=== PATIENT | female | born 1940 | race Caucasian/White ===

== ENCOUNTER 2017-01-10 16:11 | Inpatient (IN) | payer MEDICARE ==
[~2017-01-10] VITALS: Ht 172.7 cm; Wt 77.8 kg
--- NOTE | 2017-01-10 16:25 | NUR ---
PT BIB AMBULANCE DUE TO BRADYCARDIA. EPI 0.5 GIVEN IN FIELD MODERN GREEK STUDIES PROFESSOR. DENIES ANY PAIN. PT ALREADY ON IV ACCESS LHAND #18 NOT PATENT . STARTED NEW IV ACCESS LAC #18 . PT CONTINUES TO HAVE BRADYCARDIA. UPDATED MD AWAITING MD. PLACED PT ON EDUCATIONAL AID.
[2017-01-10] MEDS ORDERED: IV NS 0.9% 500 ML BAG IV ONE (16:30)
[2017-01-10] MEDS ORDERED: IV NS 0.9% 500 ML IV ONE (16:35)
[2017-01-10] MEDS ORDERED: IV SET PRIMARY PUMP SET 1 EA INFUS.SET MC ONE ×3 (16:35→17:20)
[2017-01-10 16:41] LABS: BASOPHILS % (AUTO) 0.5 % (0.0-2.0); EOSINOPHILS # (AUTO) 0.1 /CMM (0.0-0.7); EOSINOPHILS % (AUTO) 1.5 % (0.0-6.0); HEMATOCRIT 31 % (33-45); HEMOGLOBIN 10.8 g/dL (11.5-14.8); LYMPHOCYTES # (AUTO) 1.6 /CMM (0.8-4.8); LYMPHOCYTES % (AUTO) 15.9 % (20.0-44.0); MEAN CORPUSCULAR HEMOGLOBIN 34 PG (26.0-33.0); MEAN CORPUSCULAR HGB CONC 35 g/dl (31.0-36.0); MEAN CORPUSCULAR VOLUME 99 fL (82-100); MONOCYTES # (AUTO) 0.6 /CMM (0.1-1.30); MONOCYTES % (AUTO) 6.5 % (2.0-12.0); NEUTROPHILS # (AUTO) 7.5 /CMM (1.8-8.9); NEUTROPHILS % (AUTO) 75.6 % (43.0-81.0); PLATELET COUNT (AUTO) 161 /CMM (150-450); RDW COEFFICIENT OF VARIATION 13.9 (11.5-15.0); RED BLOOD CELL COUNT(AUTO) 3.15 MIL/uL (4.0-5.2); WHITE BLOOD COUNT (AUTO) 9.8 K/uL (4.3-11.0)
[2017-01-10 17:00] LABS: ALANINE AMINOTRANSFERASE 59 U/L (12-78); ALBUMIN 3.2 g/dL (3.4-5.0); ALKALINE PHOSPHATASE 135 U/L (46-116); ASPARTATE AMINOTRANSFERASE 62 U/L (15-37); BILIRUBIN,DIRECT 0.1 mg/dL (0.0-0.2); BILIRUBIN,TOTAL 0.3 mg/dL (0.2-1.0); CALCIUM, SERUM 8.1 mg/dL (8.5-10.1); CARBON DIOXIDE 29 mmol/L (21-32); CHLORIDE 97 mmol/L (98-107); CREATININE 2.2 mg/dL (0.6-1.3); POTASSIUM 5.8 mmol/L (3.5-5.1); SODIUM SERUM 131 mmol/L (136-145); TOTAL PROTEIN, SERUM 6.4 g/dL (6.4-8.2); TROPONIN I < 0.017 ng/mL (0.00-0.056); UREA NITROGEN, BLOOD 70 mg/dL (7-18)
--- NOTE | 2017-01-10 17:06 | NUR ---
CALLED DR.MICHELLE TRISTAN AT [phone], PLUSH FINISHER, TRANSFERRED CALL TO
[2017-01-10 17:10] LABS: GLUCOSE 509 mg/dL (74-106)
[2017-01-10] MEDS ORDERED: CALCIUM CHLORIDE 1,000 MG/10 ML DISP.SYRIN ONE (17:19)
--- NOTE | 2017-01-10 17:19 | NUR ---
UP=411 RECHECK AFTER 15 MINS LV=231 THEN AFTER 15 MINS =386 . AWARE.
[2017-01-10] MEDS ORDERED: INSULIN REGULAR, HUMAN 100 UNIT/ML 10 ML VIAL ONE (17:20)
[2017-01-10] MEDS ORDERED: SODIUM BICARBONATE SYR 50 MEQ/50 ML DISP.SYRIN ONE (17:20)
[2017-01-10] MEDS ORDERED: IV NS 0.9% 1,000 ML ONE (17:20)
[2017-01-10] MEDS ORDERED: ONDANSETRON 4 MG TAB.RAPDIS ONE (17:24)
[2017-01-10] MEDS ORDERED: ONDANSETRON 4 MG TAB.RAPDIS SL ONE (17:30)
[2017-01-10] MEDS ORDERED: SODIUM BICARBONATE SYR 50 MEQ/50 ML DISP.SYRIN IV ONE (17:30)
[2017-01-10] MEDS ORDERED: CALCIUM CHLORIDE 1,000 MG/10 ML DISP.SYRIN IV ONE (17:30)
[2017-01-10] MEDS ORDERED: INSULIN REGULAR, HUMAN 100 UNIT/ML 10 ML VIAL IV ONE (17:30)
[2017-01-10] MEDS ORDERED: IV NS 0.9% 1,000 ML BAG IV ONE (17:30)
--- NOTE | 2017-01-10 18:45 | NUR ---
PT TRANSFERRED TO ICU VIA [facility] PROTOCOL. HEART RATE 62 .
[2017-01-10] MEDS ORDERED: BUME2TAB3 PO (18:56)
[2017-01-10] MEDS ORDERED: INSU100V7 SQ (18:56)
[2017-01-10] MEDS ORDERED: APIX2.5T PO (18:56)
[2017-01-10] MEDS ORDERED: INSU100V27 SQ (18:56)
[2017-01-10] MEDS ORDERED: DILT120T2 PO (18:56)
[2017-01-10] MEDS ORDERED: ALLO100T PO (18:56)
[2017-01-10] MEDS ORDERED: ACYC800T PO (18:56)
[2017-01-10] MEDS ORDERED: LOTE5DRO3 LEFTEYE (18:56)
[2017-01-10] MEDS ORDERED: CLOP75TA2 PO (18:56)
[2017-01-10] MEDS ORDERED: METH1TAB30 PO (18:56)
--- NOTE | 2017-01-10 19:00 | NUR ---
DIE STAMPING PRESS OPERATOR: PT ADMITTED TO ICU ROOM 261 FOR DX OF BRADYCARDIA. RECEIVED A/O X 3. ON R/A WT NO ACUTE DISTRESS. NO C/O PAIN. SR ON VARNISH DIPPER. AFEBRILE. AWAITING FOR ORDERS. PER PATIENT, SHE WANTED TO BE DNR/DNI. VIC CHARGE NURSE CONFIRMED AT BEDSIDE. SAFETY PRECAUTION NOTED. WILL CONTINUE TO MONITOR.
[2017-01-10] MEDS ORDERED: [UNRECOGNIZED DRUG - CODE] PO (19:02)
[2017-01-10] MEDS ORDERED: MIRT15TA3 PO (19:02)
[2017-01-10] MEDS ORDERED: CARB30DR4 EACHEYE (19:02)
[2017-01-10] MEDS ORDERED: DOCU-25 PO (19:02)
[2017-01-10] MEDS ORDERED: TRAM50TA2 PO (19:02)
[2017-01-10] MEDS ORDERED: LACT1CAP71 PO (19:02)
[2017-01-10] MEDS ORDERED: METO200T35 PO (19:02)
[2017-01-10 19:10] VITALS: BP 159/60
[2017-01-10 19:16] VITALS: BP 161/57
[2017-01-10 19:50] LABS: PROTHROMBIN TIME 10.7 SECS (9.5-12.7)
[2017-01-10 20:00] VITALS: BP 177/64
[2017-01-10] MEDS ORDERED: CARBOXYMETHYLCELLULOSE SODIUM 0.4 ML DROPERETTE EACHEYE PRN (20:00)
[2017-01-10] MEDS ORDERED: ACETAMINOPHEN 325 MG TABLET PO PRN (20:00)
[2017-01-10] MEDS ORDERED: Z GUARD REMEDY 2 OZ OINT TP PRN (20:00)
[2017-01-10 21:00] VITALS: BP 195/72
[2017-01-10 21:18] LABS: CALCIUM, SERUM 9.3 mg/dL (8.5-10.1); CARBON DIOXIDE 29 mmol/L (21-32); CHLORIDE 100 mmol/L (98-107); CREATININE 1.8 mg/dL (0.6-1.3); MAGNESIUM 2.3 mg/dL (1.8-2.4); POTASSIUM 5.6 mmol/L (3.5-5.1); SODIUM SERUM 135 mmol/L (136-145); UREA NITROGEN, BLOOD 69 mg/dL (7-18)
[2017-01-10 21:22] LABS: TROPONIN I < 0.017 ng/mL (0.00-0.056)
[2017-01-10 21:27] LABS: GLUCOSE 361 mg/dL (74-106)
--- NOTE | 2017-01-10 21:40 | NUR ---
CODE ENFORCEMENT OFFICER: RECEIVED GLUCOSE RESULT FROM LAB DRAW= 361. ACCUCHEK DONE WT RESULT OF 348. WILL ADMINISTER LEVEMIR ORDERED WILL NOTIFY MD IF WANT TO ORDER INSULIN PER SS. NO KENNY AT THIS TIME. REMAINED ALERT AND AWAKE. NO S/S OF HYPERGLYCEMIA AT THIS TIME. WILL CONTINUE TO MONITOR.
--- NOTE | 2017-01-10 21:50 | NUR ---
INDUSTRIAL RELATIONS ANALYST: NOTIFIED DR. GALAN OF LAB RESULTS FOR K=5.6, WFNAFHO=783 AND ELEVATED BP. HE SAID HE WILL REFER TO BRIE TALLEY. DNP MADE AWARE AND SAID HE WILL PLACE ORDERS.
[2017-01-10] MEDS: INSULIN DETEMIR 100 UNIT/ML CARTRIDGE SQ SCH (21:56)
[2017-01-10 22:00] VITALS: BP 182/66
[2017-01-10] MEDS ORDERED: MIRTAZAPINE SOLUTAB 15 MG/UDTABLET TAB.RAPDIS PO SCH (22:00)
[2017-01-10] MEDS ORDERED: NIFEdipine (10MG) 10 MG CAPSULE ONE (22:21)
[2017-01-10] MEDS ORDERED: SODIUM POLYSTYRENE SULFONATE 15 G/60 ML BOTTLE ONE (22:21)
[2017-01-10] MEDS: BLOOD SUGAR DIAGNOSTIC 1 EACH STRIP IN SCH (22:26)
[2017-01-10] MEDS ORDERED: DEXTROSE 50%-WATER 50 ML DISP.SYRIN IV PRN (22:30)
[2017-01-10] MEDS ORDERED: SODIUM POLYSTYRENE SULFONATE 15 G/60 ML BOTTLE PO ONE (22:30)
[2017-01-10] MEDS: *INSULIN REGULAR(HUMULIN R)HUM 100 UNIT/ML VIAL SQ PRN (22:35)
[2017-01-10] MEDS: TRAMADOL HCL 50 MG TABLET PO PRN (22:40)
[2017-01-10] MEDS: NIFEdipine (10MG) 10 MG CAPSULE PO SCH (22:41)
[2017-01-10 23:00] VITALS: BP 183/64
[2017-01-11] VITALS (14 sets, daily range): BP systolic 68–181; BP diastolic 40–99
--- NOTE | 2017-01-11 00:15 | NUR ---
FARMER CASH GRAIN: NOTIFIED DR. GALAN OF STILL ELEVATED BP EVEN AN HOUR AFTER PROCARDIA. SAID TO JUST MONITOR BECAUSE HE STATED, "THERE'S NOT MUCH WE CAN GIVE. WE CAN TRY HYDRALAZINE BUT THAT MAY CAUSE BRADYCARDIA TOO OR IT MAY CAUSE TACHYCARDIA". WILL CONTINUE TO MONITOR.
--- NOTE | 2017-01-11 01:00 | NUR ---
BAKERY TECHNICIAN: BP NO IMPROVED AT 153/74. REMAINED SR WT HR IN THE 60s-70s. WILL CONTINUE TO MONITOR.
[2017-01-11 04:47] LABS: BASOPHILS % (AUTO) 0.2 % (0.0-2.0); EOSINOPHILS # (AUTO) 0.1 /CMM (0.0-0.7); EOSINOPHILS % (AUTO) 1.2 % (0.0-6.0); HEMATOCRIT 31 % (33-45); HEMOGLOBIN 10.4 g/dL (11.5-14.8); LYMPHOCYTES # (AUTO) 1.4 /CMM (0.8-4.8); LYMPHOCYTES % (AUTO) 14.7 % (20.0-44.0); MEAN CORPUSCULAR HEMOGLOBIN 33 PG (26.0-33.0); MEAN CORPUSCULAR HGB CONC 34 g/dl (31.0-36.0); MEAN CORPUSCULAR VOLUME 98 fL (82-100); MONOCYTES # (AUTO) 0.6 /CMM (0.1-1.30); MONOCYTES % (AUTO) 6.4 % (2.0-12.0); NEUTROPHILS # (AUTO) 7.4 /CMM (1.8-8.9); NEUTROPHILS % (AUTO) 77.5 % (43.0-81.0); PLATELET COUNT (AUTO) 177 /CMM (150-450); RED BLOOD CELL COUNT(AUTO) 3.12 MIL/uL (4.0-5.2); WHITE BLOOD COUNT (AUTO) 9.6 K/uL (4.3-11.0)
[2017-01-11 05:00] LABS: CALCIUM, SERUM 8.8 mg/dL (8.5-10.1); CREATININE 1.6 mg/dL (0.6-1.3); PHOSPHORUS 4.8 mg/dL (2.5-4.9)
[2017-01-11 05:05] LABS: THYROID STIMULATING HORMONE 2.667 uIU/mL (0.358-3.74)
--- NOTE | 2017-01-11 05:20 | NUR ---
WAX BLENDER: NOTIFIED DR. GALAN OF GLUCOSE LAB. LUBIAPM=943. ACCUCHEK JLOM=315. INFORMED MD THAT PT HAD 1 CAN OF DIET COKE 2 HRS AGO. ATE TUNA SANDWICH AND DRANK 2% REDUCED FAT MILK LAST NIGHT BUT GOT COVERED WT 8 UNITS OF REGULAR INSULIN AND 13 UNITS LEVEMIR. WT ORDER TO GIVE 10 UNITS OF REGULAR INSULIN X 1. NOTED AND CARRIED OUT. PT AND MARITESS CHARGE NURSE MADE AWARE. PT. REMAINED A/O X 3. PLACED ON 2L 02 VIA NC SHE DESAT. IN THE LOW 90s WHEN ASLEEP. NO ACUTE DISTRESS, NO C/O PAIN. SR ON MONITOR WT OCCASIONAL PACs, HR IN THE 60s TO 70s. WILL ADMINISTER PROCARDIA ORDERED FOR ELEVATED BP. ABLE TO SIT ON THE BEDSIDE COMMODE AND HAD 1 MODERATE AMT. OF SOFT FORMED BROWN STOOLS WT ADEQUATE CLEAR YELLOW URINE OUTPUT. SAFETY PRECAUTION NOTED AT ALL TIMES.
[2017-01-11] MEDS ORDERED: NIFEdipine (10MG) 10 MG CAPSULE ONE (05:29)
[2017-01-11] MEDS ORDERED: INSULIN REGULAR, HUMAN 100 UNIT/ML 10 ML VIAL IV ONE (05:30)
[2017-01-11] MEDS: NIFEdipine (10MG) 10 MG CAPSULE PO SCH ×3 (05:41→20:20)
[2017-01-11] MEDS ORDERED: INSULIN LISPRO/ASPART 100 UNIT/ML CARTRIDGE SQ SCH (07:30)
[2017-01-11] MEDS: BLOOD SUGAR DIAGNOSTIC 1 EACH STRIP IN SCH ×4 (07:48→22:06)
--- NOTE | 2017-01-11 07:50 | NUR ---
ELECTRIC DEICER ASSEMBLER: pt.is A/Ox3, no any pain, no c/o now, O2 sat. WNL, SR 60-70, SBP below 150, BS down to 275, still on aggressive insulin SS, K+5.0
[2017-01-11] MEDS: INSULIN REGULAR, HUMAN 100 UNIT/ML 3 ML VIAL SQ PRN ×2 (07:55→17:24)
[2017-01-11] MEDS ORDERED: BUMETANIDE (1 MG) 1 MG TABLET PO SCH (09:00)
[2017-01-11] MEDS: DOCUSATE SODIUM 100 MG CAPSULE PO SCH ×2 (09:00→17:00)
--- NOTE | 2017-01-11 09:15 | NUR ---
PROFESSOR OF RELIGION: is in room, updated with pt.current condition, VS, labs, meds, see new orders
[2017-01-11] MEDS: CLOPIDOGREL BISULFATE 75 MG TABLET PO SCH (09:53)
[2017-01-11] MEDS: ALLOPURINOL 100 MG TABLET PO SCH (09:53)
[2017-01-11] MEDS: APIXABAN 2.5 MG TABLET PO SCH ×2 (09:54→17:20)
[2017-01-11 09:58] LABS: TROPONIN I < 0.017 ng/mL (0.00-0.056)
[2017-01-11 10:04] LABS: IRON, SERUM 66 ug/dl (50-175); TOTAL IRON BINDING CAPACITY 309 ug/dl (250-450)
[2017-01-11] MEDS ORDERED: IV SET PRIMARY PUMP SET 1 EA INFUS.SET MC ONE (10:18)
[2017-01-11] MEDS: IV NS 0.9% 1,000 ML IV PRN ×3 (10:24→22:05)
[2017-01-11 10:28] LABS: FERRITIN 239 ng/mL (8-388)
--- NOTE | 2017-01-11 10:30 | NUR ---
RISK CONTROL CONSULTANT: pt.is transferred to Tele after full report for MACHO Dumont
--- NOTE | 2017-01-11 12:42 | NUR ---
Tele Receiving Note Received patient @ 1100. Patient transported to room 102. Breathing even and unlabored with NC 2L, sat 100%. Augie Torres gave verbal order ok wean off O2. O2 sat on room air 98%. patient A+o x4, verbalizes needs, understands on health care needs. able to ambulate to bathroom with standby assistance. denies pain and discomfort. skin warm and dry. pulses palpable in all extremities. abd soft, non-distended. non-tender. LAC iv patent, RFA IV patent. order for 1L NS @ 75ml/hr x1bag infusing. BS stable, patient consuming food. discussed plan of care. call light in reach.
--- NOTE | 2017-01-11 17:12 | NUR ---
NOTE PATIENT STATING HAVING NECK PAIN AFTER TAKING A NAP. INFORMED BRIE PALMER, ANNETTA VERBAL ORDER FOR LIDOCAINE PATCH 5% Q24 ON 12H, OFF 12H, PRN PAIN.
[2017-01-11] MEDS ORDERED: LIDOCAINE 5% (PATCH) 1 EA PATCH TP PRN (17:30)
--- NOTE | 2017-01-11 19:15 | NUR ---
RN INITIAL NOTES RECEIVED PATIENT IN BED, AWAKE AND ALERT X3-4. ABLE TO MAKE NEEDS KNOWN AND DENIES ANY PAIN AND DISCOMFORT. ON ROOM AIR, RESPIRATION IS EVEN AND UNLABORED WITH NO DISTRESS, SATURATING WELL AT 97%. PATIENT IS SR ON TELE, HR OF 69. PATIENT VERY WELL AWARE OF HER CONSISTENT CARB DIET, SNACKS WILL BE PROVIDED PER DIET ALLOWANCE, PATIENT VERBALIZED UNDERSTANDING. WITH IVF OF NS AT 75CC/HR, RUNNING ON PATIENT'S R FOREARM G20, FLUSHED AND PATENT, NO INFILTRATION. L AC G20, INTACT AND PATENT, NO INFILTRATION NOTED. PATIENT'S NEEDS ANTICIPATED AND MET. SAFETY AND COMFORT ENSURED. BED IN LOW AND LOCKED POSITION. CALL LIGHT IN REACH. WILL MONITOR.
--- NOTE | 2017-01-11 19:33 | NUR ---
CLOSING NOTES LEFT PATIENT IN STABLE CONDITION. BREATHING AND LOC WNL. URINE CX COLLECTED AND INFORMED LAB TO SHOWCASE TRIMMER FROM [place]. PATIENT THANKFUL AND PLEASANT. BL IV STILL PATENT. CALL LIGHT IN REACH.
[2017-01-11 19:42] LABS: APPEARANCE,URINE CLEAR (CLEAR); BILIRUBIN,URINE NEGATIVE (NEGATIVE); BLOOD, URINE TRACE Ery/uL (NEGATIVE); COLOR,URINE YELLOW (YELLOW); KETONES,URINE NEGATIVE (NEGATIVE); LEUKOCYTE ESTERASE ,URINE TRACE (NEGATIVE); NITRITE, URINE NEGATIVE (NEGATIVE); PROTEIN,URINE 1+ mg/dl (NEGATIVE); UGLUCOSE 1+ mg/dL (NEGATIVE); UROBILINOGEN,URINE 0.2 EU/dL (0.2)
--- NOTE | 2017-01-11 20:00 | NUR ---
RN NOTES PATIENT'S BP NOTED TO BE 180/66, 72, NO DISTRESS. PATIENT DENIES ANY LIGHTHEADEDNESS, DIZZINESS, HEADACHE, CHEST PAIN, PATIENT IS ASYMPTOMATIC, NO PALPITATIONS REPORTED. MEDICATIONS REVIEWED, WILL ADMINISTER PROCARDIA SCHEDULED AT 2100. WILL MONITOR PATIENT.
[2017-01-11 20:25] LABS: ADD URINE CULTURE YES; BACTERIA,URINE 3+ /HPF (None Seen); SQUAMOUS EPITHELIAL CELL,UR Few /HPF (None Seen); WBC,URINE 21-50 /HPF (0-3)
[2017-01-11] MEDS ORDERED: METOPROLOL TARTRATE 25 MG TABLET ONE (21:00)
--- NOTE | 2017-01-11 22:00 | NUR ---
RN NOTES PATIENT'S HS MEDS GIVEN ORDERED. PATIENT'S BP RIGHT NOW IS 146/44, 76. PATIENT'S BBLOCKER, METOPROLOL, RESTARTED BY DR. TALLEY. GIVEN ORDERED. EO=769, INSULIN GIVEN ORDERED. PATIENT'S NEEDS ANTICIPATED AND MET. SAFETY AND COMFORT ENSURED. CALL LIGHT IN REACH.
[2017-01-11] MEDS: MIRTAZAPINE SOLUTAB 15 MG/UDTABLET TAB.RAPDIS PO SCH (22:06)
[2017-01-11] MEDS: METOPROLOL TARTRATE 25 MG TABLET PO SCH (22:06)
[2017-01-11] MEDS: *INSULIN REGULAR(HUMULIN R)HUM 100 UNIT/ML VIAL SQ PRN (22:18)
[2017-01-11] MEDS: INSULIN DETEMIR 100 UNIT/ML CARTRIDGE SQ SCH (22:19)
[2017-01-11] MEDS: TRAMADOL HCL 50 MG TABLET PO PRN (23:13)
[2017-01-12] VITALS (7 sets, daily range): BP systolic 145–183; BP diastolic 53–89
[2017-01-12] MEDS: NIFEdipine (10MG) 10 MG CAPSULE PO SCH (04:15)
--- NOTE | 2017-01-12 04:56 | NUR ---
RN NOTES PATIENT'S 0400 BP NOTED TO BE 177/73, 75, SR ON TELE. PATIENT DENIES ANY PAIN AND DISCOMFORT. NO SYMPTOMS OF HYPERTENSION NOTED. PROCARDIA GIVEN PER SCHEDULED. PATIENT'S BP RIGHT NOW RECHECKED IS, 141/56, 71. PATIENT'S O2 SATURATION IS 99%, ON 2LPM OF O2 VIA NC. ASSISTED WITH ADLS. SAFETY AND COMFORT ENSURED.
--- NOTE | 2017-01-12 06:35 | NUR ---
RN CLOSING NOTES PATIENT WITH NO ACUTE DISTRESS OBSERVED OVERNIGHT. REMAINS SR WITH PACs AND OCCASIONAL PVCs AT 74. ON 2LPM OF O2 VIA NC. ALL DUE MEDS GIVEN ORDERED. IVF INFUSING WELL ON PATIENT'S R FOREARM ORDERED. BS MONITORED CLOSELY, NO EPISODE OF HYPOGLYCEMIA NOTED. PATIENT'S NEEDS ANTICIPATED AND MET. ASSISTED WITH ADLS NEEDED. SAFETY AND COMFORT ENSURED. BED IN LOW AND LOCKED POSITION. CALL LIGHT WITHIN REACH. WILL ENDORSE ACCORDINGLY FOR CONTINUITY OF CARE.
[2017-01-12 06:36] LABS: ALANINE AMINOTRANSFERASE 99 U/L (12-78); ALKALINE PHOSPHATASE 173 U/L (46-116); ASPARTATE AMINOTRANSFERASE 52 U/L (15-37); BILIRUBIN,TOTAL 0.4 mg/dL (0.2-1.0); CALCIUM, SERUM 8.6 mg/dL (8.5-10.1); CARBON DIOXIDE 29 mmol/L (21-32); CHLORIDE 106 mmol/L (98-107); CREATININE 1.2 mg/dL (0.6-1.3); GLUCOSE 128 mg/dL (74-106); PHOSPHORUS 3.7 mg/dL (2.5-4.9); POTASSIUM 3.9 mmol/L (3.5-5.1); SODIUM SERUM 140 mmol/L (136-145); TOTAL PROTEIN, SERUM 6.1 g/dL (6.4-8.2); TROPONIN I < 0.017 ng/mL (0.00-0.056); UREA NITROGEN, BLOOD 42 mg/dL (7-18)
[2017-01-12] MEDS: BLOOD SUGAR DIAGNOSTIC 1 EACH STRIP IN SCH ×4 (06:41→22:00)
[2017-01-12 07:02] LABS: BASOPHILS % (AUTO) 0.4 % (0.0-2.0); EOSINOPHILS # (AUTO) 0.2 /CMM (0.0-0.7); EOSINOPHILS % (AUTO) 1.8 % (0.0-6.0); HEMATOCRIT 29 % (33-45); HEMOGLOBIN 9.6 g/dL (11.5-14.8); LYMPHOCYTES # (AUTO) 1.3 /CMM (0.8-4.8); LYMPHOCYTES % (AUTO) 13.7 % (20.0-44.0); MEAN CORPUSCULAR HEMOGLOBIN 33 PG (26.0-33.0); MEAN CORPUSCULAR HGB CONC 33 g/dl (31.0-36.0); MEAN CORPUSCULAR VOLUME 98 fL (82-100); MONOCYTES # (AUTO) 0.6 /CMM (0.1-1.30); MONOCYTES % (AUTO) 6.7 % (2.0-12.0); NEUTROPHILS % (AUTO) 77.4 % (43.0-81.0); PLATELET COUNT (AUTO) 133 /CMM (150-450); RDW COEFFICIENT OF VARIATION 15.1 (11.5-15.0); RED BLOOD CELL COUNT(AUTO) 2.96 MIL/uL (4.0-5.2); WHITE BLOOD COUNT (AUTO) 9.1 K/uL (4.3-11.0)
--- NOTE | 2017-01-12 07:50 | NUR ---
ORNAMENTAL PAINTER NOTE PATIENT IN BED ,RESTING COMFORTABLY, ON 2L NC NO SOB NOTED AT THIS TIME , ON TELE MONITOR SR HR 64, RT FA HL ON IVF, LT AC HL INTACT, BED IN LOWEST AND LOCKED POSITION , CALL LIGHT WITHIN ,WILL CONT TO MONITOR CLOSELY , NO C\O CHEST PAIN OR DIZZINESS
[2017-01-12] MEDS: CLOPIDOGREL BISULFATE 75 MG TABLET PO SCH (08:14)
[2017-01-12] MEDS: METOPROLOL TARTRATE 25 MG TABLET PO SCH ×2 (08:15→21:58)
[2017-01-12] MEDS: APIXABAN 2.5 MG TABLET PO SCH ×2 (08:15→16:49)
[2017-01-12] MEDS: ALLOPURINOL 100 MG TABLET PO SCH (08:15)
[2017-01-12] MEDS: DOCUSATE SODIUM 100 MG CAPSULE PO SCH ×2 (08:15→16:49)
--- NOTE | 2017-01-12 11:48 | NUR ---
INDUSTRIAL MACHINE OPERATOR NOTE DR PARSONS AT BEDSIDE EXAMINED PATIENT, AWARE THAT O2 ON RA 92-94% ALSO DR EMMANUEL NOTIFIED THAT PATIENT REFUSED TO TAKE BUMEX
[2017-01-12] MEDS: INSULIN REGULAR, HUMAN 100 UNIT/ML 3 ML VIAL SQ PRN ×2 (12:24→18:17)
[2017-01-12] MEDS: hydrALAZINE HCL 50 MG TABLET PO SCH ×2 (12:28→23:20)
[2017-01-12] MEDS: BUMETANIDE (1 MG) 1 MG TABLET PO SCH (12:35)
--- NOTE | 2017-01-12 12:54 | NUR ---
WELDER/FABRICATOR NOTES DR. TALLEY SPOKE WITH PT ABOUT MEDICATION. PT. TOOK BUMEX MED ORDER.
--- NOTE | 2017-01-12 15:28 | NUR ---
MIXER AND BLENDER NOTES SPOKE WITH BRIE TALLEY DNP NOTIFIED PT. WANTS TO USE OWN SLIDING SCALE WITH INSULIN LISPRO HUMALOG, PER PHARMACYST WE HAVE [facility] NOVOLOG DNP AWARE OK TO START.
[2017-01-12] MEDS: INSULIN ASPART NOVOLOG 100 UNIT/ML CARTRIDGE SQ PRN (17:32)
--- NOTE | 2017-01-12 17:35 | NUR ---
REGULATORY AUDITOR NOTES CALED TO BRIE PALMER DNP NOTIFIED THAT BP 179/66 ORDERED APRESOLINE 25 MG PO TIME ONE , ORDER CARRIED OUT
[2017-01-12] MEDS ORDERED: hydrALAZINE HCL 25 MG TABLET PO ONE (18:00)
--- NOTE | 2017-01-12 18:00 | NUR ---
BUSINESS ECONOMIST NOTE REGULAR INSULIN GIVEN , BLOOD SUGAR 221 MG\DL PER SLIDING SCALE NEED TO TAKE 8 UNITS OF REGULAR INSULIN WANTS TO HAVE 5 UNITS OF INSULIN BRIE PALMER DNP NOTIFIED
[2017-01-12] MEDS: TRAMADOL HCL 50 MG TABLET PO PRN (18:30)
--- NOTE | 2017-01-12 18:33 | NUR ---
LEAD NET SOFTWARE DEVELOPER NOTE C\O GENERAL PAIN 7\10 SCALE BP 154/80 HR 136 , ULTRUM PO GIVEN ORDERED PLACED ON O2L SAT 96% WILL MONITOR CLOSELY
--- NOTE | 2017-01-12 19:15 | NUR ---
TELE RNNNOTE PATIENT C\O SLIGHT CHEST PALPITATION , HR 136 ST ON MONITOR PLACED 2L O2 ,CALLED BRIE WITH ORDER OK TO DO EKG AND METOPROLOL 25 MG TIME ONE NOW
--- NOTE | 2017-01-12 19:18 | NUR ---
DIRECT SERVICE PROFESSIONAL NOTE EKG [address] ,BRIE PALMER DNP NOTIFIED , ENDORSED NEXT SHIFT RN TRAVIS ABOUT PATIENT CONDITION , WILL F\U
[2017-01-12] MEDS ORDERED: METOPROLOL SUCCINATE 25 MG TAB.SR.24H PO ONE (19:30)
[2017-01-12] MEDS ORDERED: METOPROLOL SUCCINATE 25 MG TAB.SR.24H ONE (19:43)
--- NOTE | 2017-01-12 20:00 | NUR ---
TRUCK ASSEMBLER NOTE PT IN BED AWAKE WATCHING TV. A/O X 4, NO SOB, NO DISTRESS OR DISCOMFORT NOTED. DENIES PAIN AT THIS TIME. O2 2L VIA N/C O2 SAT 99%. ON TELE S TECH WITH PAC HR 123. TOPROL XL 25 MG PO GIVEN ORDERED, B/P IS HIGH 180/89. H/L RFA #20 G AND LAC #20 G INTACT AND PATENT. SIDE RAILS UP X 2 AND CALL LIGHT WITHIN REACH. CONTINUE TO MONITOR HER.
[2017-01-12] MEDS: MIRTAZAPINE SOLUTAB 15 MG/UDTABLET TAB.RAPDIS PO SCH (21:58)
[2017-01-12] MEDS: INSULIN DETEMIR 100 UNIT/ML CARTRIDGE SQ SCH (22:00)
[2017-01-12] MEDS: *INSULIN REGULAR(HUMULIN R)HUM 100 UNIT/ML VIAL SQ PRN (22:02)
[2017-01-12] MEDS ORDERED: DILTIAZEM HCL 30 MG TABLET ONE (23:34)
[2017-01-13] VITALS (8 sets, daily range): BP systolic 116–156; BP diastolic 57–82
[2017-01-13] MEDS: DILTIAZEM HCL 30 MG TABLET PO SCH ×4 (00:01→23:09)
[2017-01-13] MEDS: ONDANSETRON HCL/PF 4 MG/2 ML VIAL IVP PRN (01:47)
--- NOTE | 2017-01-13 01:52 | NUR ---
CAMPAIGN ASSOCIATE NOTE PT WOKE UP NOTED NAUSEA AND VOMITING 50 ML FLUID WITH FOOD PARTICLES CAME OUT. ZOFRAN 4 MG IVP GIVEN. ON TELE S TECH 129. PT C/O CHEST PALPITATION. CHARGE NURSE INFORMED. NEW ORDER OF EKG NOTED. CONTINUE TO MONITOR HER.
--- NOTE | 2017-01-13 02:21 | NUR ---
TRANSLITERATOR NOTE STAT EKG DONE. RHYTHM CHANGED TO A FIB WITH RVA HR 102. CHARGE NURSE INFORMED WILL F/U WITH . ALSO N/V SUBSIDED.
--- NOTE | 2017-01-13 02:55 | NUR ---
POSTAL SERVICE WINDOW CLERK NOTE STAT MAGNESIUM DRAWN ORDER BY DR GALAN. WAITING FOR THE RESULT.
[2017-01-13] MEDS ORDERED: SECONDARY IV SET 1 EA INFUS.SET MC ONE (03:59)
[2017-01-13] MEDS ORDERED: Magnesium 1GM/D5W 100ML PREMIX 200 ML IV ONE (04:00)
--- NOTE | 2017-01-13 04:04 | NUR ---
NEUROPHYSIOLOGY TECH NOTE MAG LEVEL 1.7, INFORMED AND RECEIVED NEW ORDER FOR MAG 2 G, ORDER NOTED AND CARRIED OUT.
[2017-01-13] MEDS: Magnesium 1GM/D5W 100ML PREMIX 100 ML IV SCH ×2 (04:07→05:13)
[2017-01-13] MEDS ORDERED: DILTIAZEM HCL 30 MG TABLET ONE (05:23)
[2017-01-13] MEDS: BLOOD SUGAR DIAGNOSTIC 1 EACH STRIP IN SCH ×4 (05:44→21:25)
--- NOTE | 2017-01-13 06:24 | NUR ---
ELECTRICAL LINEMAN NOTE PT IN BED ASLEEP, AROUSABLE. NO DISTRESS OR DISCOMFORT NOTED. DENIES PAIN. H/L INTACT AND PATENT, NO S/S OF INFILTRATION NOTED. ON TELE REMAIN A FIB CONTROLLED HR 120'S. SIDE RAILS UP X 2 AND CALL LIGHT WITHIN REACH. WILL ENDORSE TO DAY SHIFT NURSE FOR CONTINUE TO CARE.
[2017-01-13 06:44] LABS: BASOPHILS % (AUTO) 0.2 % (0.0-2.0); EOSINOPHILS # (AUTO) 0.1 /CMM (0.0-0.7); EOSINOPHILS % (AUTO) 1.5 % (0.0-6.0); HEMATOCRIT 31 % (33-45); HEMOGLOBIN 10.3 g/dL (11.5-14.8); LYMPHOCYTES # (AUTO) 1.3 /CMM (0.8-4.8); LYMPHOCYTES % (AUTO) 14.4 % (20.0-44.0); MEAN CORPUSCULAR HEMOGLOBIN 32 PG (26.0-33.0); MEAN CORPUSCULAR HGB CONC 33 g/dl (31.0-36.0); MEAN CORPUSCULAR VOLUME 98 fL (82-100); MONOCYTES # (AUTO) 0.6 /CMM (0.1-1.30); MONOCYTES % (AUTO) 6.1 % (2.0-12.0); NEUTROPHILS # (AUTO) 7.1 /CMM (1.8-8.9); NEUTROPHILS % (AUTO) 77.8 % (43.0-81.0); PLATELET COUNT (AUTO) 148 /CMM (150-450); RED BLOOD CELL COUNT(AUTO) 3.16 MIL/uL (4.0-5.2); WHITE BLOOD COUNT (AUTO) 9.1 K/uL (4.3-11.0)
--- NOTE | 2017-01-13 07:15 | NUR ---
PRESS ASSISTANT AND FEEDER INITIAL NOTES RECEIVED REPORT AND PT FROM PM NURSE, A&O X4 SYRIAC SPEAKING, ON 2L NC SAT ABOVE 97%, ON TELE MON AFIB WITH HR 103, RT FA 20G, LT AC 20 G ALL INTACT NO S.S OF INFILTRATION, ALL NEEDS MET,ALL SAFETY MEASURES INITIATED, SIDE RAILS X2, BED LOW AND LOCKED, CALL LIGHT WITHIN REACH, WILL CONTINUE TO MONITOR.
[2017-01-13 07:37] LABS: CALCIUM, SERUM 8.3 mg/dL (8.5-10.1); CREATININE 0.9 mg/dL (0.6-1.3); MAGNESIUM 2.4 mg/dL (1.8-2.4); PHOSPHORUS 3.7 mg/dL (2.5-4.9); POTASSIUM 3.5 mmol/L (3.5-5.1)
[2017-01-13] MEDS: BUMETANIDE (1 MG) 1 MG TABLET PO SCH (08:49)
[2017-01-13] MEDS: DOCUSATE SODIUM 100 MG CAPSULE PO SCH ×2 (08:49→17:57)
[2017-01-13] MEDS: APIXABAN 2.5 MG TABLET PO SCH ×2 (08:50→17:56)
[2017-01-13] MEDS: CLOPIDOGREL BISULFATE 75 MG TABLET PO SCH (08:50)
[2017-01-13] MEDS: ALLOPURINOL 100 MG TABLET PO SCH (08:50)
[2017-01-13] MEDS: METOPROLOL TARTRATE 25 MG TABLET PO SCH ×2 (08:51→21:24)
[2017-01-13] MEDS ORDERED: AMIODARONE HCL 200 MG TABLET PO SCH (10:49)
[2017-01-13] MEDS ORDERED: POTASSIUM CHLORIDE 20 MEQ TAB.PRT.SR PO SCH (11:00)
[2017-01-13] MEDS ORDERED: POTASSIUM CHLORIDE 20 MEQ POWDER PACKET PO SCH (12:00)
[2017-01-13] MEDS: hydrALAZINE HCL 50 MG TABLET PO SCH ×2 (12:08→22:37)
[2017-01-13] MEDS: INSULIN ASPART NOVOLOG 100 UNIT/ML CARTRIDGE SQ PRN ×2 (12:35→18:03)
--- NOTE | 2017-01-13 12:37 | NUR ---
RN EXAMINER NOTES PTS BG 392 MG.DL BEFORE LUNCH, PT STATED WANTS 10 UNITS OF NOVOLOG WITH HER 45 G OF CARBS FOR LUNCH, NO REGULAR INSULIN GIVEN, ONLY GAVE 10 UNITS OF NOVOLOG SQ.
--- NOTE | 2017-01-13 12:52 | NUR ---
BOTTLING ATTENDANT NOTES PT STATED REFUSES AMIO PO MED, CALLED DR PARSONS AND STATED TO RESUME CARDIZEM PO.
[2017-01-13] MEDS ORDERED: POTASSIUM CHLORIDE 20 MEQ POWDER PACKET PO ONE (14:00)
--- NOTE | 2017-01-13 18:10 | NUR ---
PRODUCT DESIGN ENGINEER NOTES PTS BG AT 1800 323 MG/DL, PT STATED WOULD LIKE NOVOLOG 11 UNITS, GAVE INSULIN PT REQUESTED.
--- NOTE | 2017-01-13 18:30 | NUR ---
OYSTER WORKER ENDING NOTES PT STABLE AND NOT ACUTE CHANGES NOTED, REMOVED RT FA IV PT STATED FEELS PAINFUL AND WANTS TO TAKE OFF, ALL DUE MEDS GIVEN, ALL NEEDS MET, WILL ENDORSE TO PM NURSE.
--- NOTE | 2017-01-13 20:00 | NUR ---
JURY CONSULTANT NOTE PT SITTING UP IN BED A/O X 4, NO SOB, NO DISTRESS OR DISCOMFORT NOTED. DENIES PAIN. ON TELE A FLUTTER HR 110'S UNCONTROLLED. H/L IN LAC #20 G INTACT AND PATENT. SIDE RAILS UP X 2 AND CALL LIGHT WITHIN REACH. VS EXCEPT HEART RATE IS STABLE. NO S/S OF HYPO OR HYPERGLYCEMIA NOTED. CONTINUE TO MONITOR HER.
[2017-01-13] MEDS: MIRTAZAPINE SOLUTAB 15 MG/UDTABLET TAB.RAPDIS PO SCH (21:25)
[2017-01-13] MEDS: INSULIN DETEMIR 100 UNIT/ML CARTRIDGE SQ SCH (21:27)
[2017-01-13] MEDS: *INSULIN REGULAR(HUMULIN R)HUM 100 UNIT/ML VIAL SQ PRN (21:29)
[2017-01-13] MEDS: TRAMADOL HCL 50 MG TABLET PO PRN (23:12)
--- NOTE | 2017-01-13 23:13 | NUR ---
BAND SAW OPERATOR NOTE PT C/O PAIN IN MIDDLE OF CHEST 07/06, ULTRAM 50 MG PO GIVEN. ALSO DUE MED GIVEN. CONTINUE TO MONITOR HER.
[2017-01-14] VITALS: BP 167/80
--- NOTE | 2017-01-14 00:15 | NUR ---
HEAD OF ART NOTE PAIN SUBSIDED 11/05. ON TELE A FLUTTER HR 120'S. CONTINUE TO MONITOR HER.
[2017-01-14 05:11] VITALS: BP 146/68
[2017-01-14] MEDS ORDERED: TRAMADOL HCL 50 MG TABLET ONE (05:16)
--- NOTE | 2017-01-14 05:22 | NUR ---
OPERATOR/ASSISTANT FOREMAN NOTE PT C/O CHEST PAIN 06/05 AND WANT ULTRAM ONLY. MD GALAN INFORMED RECEIVED NEW ORDER, GIVEN ULTRAM 50 MG NOW. CONTINUE TO MONITOR HER.
[2017-01-14] MEDS ORDERED: TRAMADOL HCL 50 MG TABLET PO ONE (05:30)
[2017-01-14] MEDS: BLOOD SUGAR DIAGNOSTIC 1 EACH STRIP IN SCH ×4 (05:45→22:00)
--- NOTE | 2017-01-14 05:45 | NUR ---
CHAIN HOIST OPERATOR NOTE BLOODSUGAR CHECKED 68, SNACKS GIVEN TO THE PT. WILL RECHECK BS AT 0600 PER PT'S REQUEST.
[2017-01-14] MEDS: DILTIAZEM HCL 30 MG TABLET PO SCH ×3 (05:52→17:24)
--- NOTE | 2017-01-14 06:39 | NUR ---
COMMUNICATION CENTER OPERATOR NOTE PT FALL ASLEEP, AROUSABLE. NO DISTRESS OR DISCOMFORT NOTED. PAIN SUBSIDED 11/05. H/L INTACT AND PATENT. ON TELE A FLUTTER HR 130'S. SIDE RAILS UP X 2 AND CALL LIGHT WITHIN REACH. WILL ENDORSE TO DAY SHIFT NURSE FOR CONTINUE TO CARE.
[2017-01-14 07:06] LABS: CALCIUM, SERUM 9.1 mg/dL (8.5-10.1); CREATININE 1.1 mg/dL (0.6-1.3); POTASSIUM 3.6 mmol/L (3.5-5.1)
[2017-01-14 07:55] LABS: BASOPHILS % (AUTO) 0.6 % (0.0-2.0); EOSINOPHILS # (AUTO) 0.1 /CMM (0.0-0.7); HEMATOCRIT 32 % (33-45); HEMOGLOBIN 10.6 g/dL (11.5-14.8); LYMPHOCYTES # (AUTO) 1.1 /CMM (0.8-4.8); LYMPHOCYTES % (AUTO) 15.1 % (20.0-44.0); MEAN CORPUSCULAR HEMOGLOBIN 33 PG (26.0-33.0); MEAN CORPUSCULAR HGB CONC 33 g/dl (31.0-36.0); MEAN CORPUSCULAR VOLUME 98 fL (82-100); MONOCYTES # (AUTO) 0.6 /CMM (0.1-1.30); MONOCYTES % (AUTO) 7.9 % (2.0-12.0); NEUTROPHILS # (AUTO) 5.6 /CMM (1.8-8.9); NEUTROPHILS % (AUTO) 74.4 % (43.0-81.0); PLATELET COUNT (AUTO) 164 /CMM (150-450); RDW COEFFICIENT OF VARIATION 14.9 (11.5-15.0); RED BLOOD CELL COUNT(AUTO) 3.26 MIL/uL (4.0-5.2); WHITE BLOOD COUNT (AUTO) 7.5 K/uL (4.3-11.0)
[2017-01-14 08:00] VITALS: BP 149/82
[2017-01-14] MEDS: ALLOPURINOL 100 MG TABLET PO SCH (08:05)
[2017-01-14] MEDS: DOCUSATE SODIUM 100 MG CAPSULE PO SCH ×2 (08:05→17:00)
[2017-01-14] MEDS: BUMETANIDE (1 MG) 1 MG TABLET PO SCH (08:05)
[2017-01-14] MEDS: CLOPIDOGREL BISULFATE 75 MG TABLET PO SCH (08:05)
[2017-01-14] MEDS: APIXABAN 2.5 MG TABLET PO SCH ×2 (08:06→17:23)
[2017-01-14] MEDS: METOPROLOL TARTRATE 25 MG TABLET PO SCH ×2 (08:07→17:23)
[2017-01-14] MEDS: INSULIN REGULAR, HUMAN 100 UNIT/ML 3 ML VIAL SQ PRN ×3 (08:11→17:32)
--- NOTE | 2017-01-14 09:00 | NUR ---
LEAD AUDITOR NOTE Pt resting in bed. AOx4. On tele monitoring, cont to be in a-flutter, HR 116. Pt requested RN check BG, BG 153. Pt requested insulin to be given because she "will need it before noon". Per pt request, RN gave 2 units insulin per SS order, will recheck BG at 1200. Pt says she can feel the irregular HR and it is uncomfortable. No other s/s distress. Will cont to monitor.
[2017-01-14] MEDS ORDERED: MAGNESIUM HYDROXIDE 30 ML UDC PO PRN (11:00)
[2017-01-14] MEDS ORDERED: hydrALAZINE HCL IV 20 MG VIAL IV PRN (11:30)
[2017-01-14] MEDS ORDERED: NITROGLYCERIN 0.4 MG/TAB BOTTLE SL PRN (11:30)
[2017-01-14] MEDS: ONDANSETRON HCL/PF 4 MG/2 ML VIAL IVP PRN (11:56)
[2017-01-14 12:00] VITALS: BP 196/103
[2017-01-14] MEDS: hydrALAZINE HCL 50 MG TABLET PO SCH ×2 (12:30→22:11)
--- NOTE | 2017-01-14 13:11 | NUR ---
CHEST PAIN Around 1120, pt reports "horrible chest pain", described it as "pressure, cramping". HR showed 109, a-flutter on monitor, checked BP twice, 196/103 and 188/93. Dr. Jacob brothers, ordered stat EKG, troponin level, PRN nitroglycerin, and PRN IV hydralazine. IV hydralazine given so did not give scheduled PO hydralazine dose. Pt refused nitroglycerin, saying that "it doesn't work". Pt also reported nausea, zofran x1 given IV. Recheck BP around 1230 128/65, pt says pain is less than before. Will cont to monitor.
[2017-01-14 16:00] VITALS: BP 116/67
--- NOTE | 2017-01-14 17:36 | NUR ---
SKOOG PATCHING MACHINE OPERATOR NOTE Chest pain manageable now, BP 116/67, HR 120, remains in a-flutter. Gave milk of mag, no BM since 01/10/17. No other changes. All needs met. Will endorse to next RN.
[2017-01-14 20:00] VITALS: BP 101/49
[2017-01-14] MEDS: MIRTAZAPINE SOLUTAB 15 MG/UDTABLET TAB.RAPDIS PO SCH (22:10)
[2017-01-14] MEDS: *INSULIN REGULAR(HUMULIN R)HUM 100 UNIT/ML VIAL SQ PRN (22:13)
[2017-01-15] VITALS: BP 137/54
[2017-01-15] MEDS: DILTIAZEM HCL 30 MG TABLET PO SCH ×3 (00:28→11:10)
[2017-01-15] MEDS: INSULIN DETEMIR 100 UNIT/ML CARTRIDGE SQ SCH (00:33)
[2017-01-15] MEDS: INSULIN REGULAR, HUMAN 100 UNIT/ML 3 ML VIAL SQ PRN ×2 (00:36→12:18)
[2017-01-15] MEDS: METOPROLOL TARTRATE 25 MG TABLET PO SCH ×3 (00:40→11:11)
[2017-01-15 04:00] VITALS: BP 124/56
[2017-01-15 05:36] VITALS: BP 124/56
--- NOTE | 2017-01-15 06:00 | NUR ---
ADDRESS CHANGE CLERK - PT. RESTING W/EYES CLOSED. EASILY AROUSABLE. A&OX3. PLAN TODAY IS D/C TO [facility] FOR [facility]. HEART MONITOR SHOWS UNCONT. AFLUTTER/AFIB. PT.IS ASYMPTOMATIC. PT.'S BS AT 22:00 WAS 111. RN TOLD PT. THAT WE ARE GOING TO HOLD THE LEVEMIR FOR NOW & THERE IS NO INSULIN TO BE GIVEN FOR ANYTHING UNDER #130. SHE STATED THAT SHE WILL FEEL BETTER W/INSULIN IN HER & THAT SHE WILL EAT IN ORDER TO INCREASE HER SUGAR. PT. ATE A TUNA SANDWICH & DRANK 2 APPLE JUICES. AT [place], BS = #224. 4 UNITS OF REG.INSULIN ADM. & 13 UNITS OF LEVEMIR ADM. SQ. PT.IS ON R/A & USES BRP'S. AFEBRILE. PT.IS DNR/DNI STATUS. CONT. POC.
[2017-01-15 06:53] LABS: BASOPHILS # (AUTO) 0.1 /CMM (0.0-0.2); BASOPHILS % (AUTO) 0.6 % (0.0-2.0); EOSINOPHILS # (AUTO) 0.2 /CMM (0.0-0.7); EOSINOPHILS % (AUTO) 2.3 % (0.0-6.0); HEMATOCRIT 30 % (33-45); LYMPHOCYTES # (AUTO) 1.4 /CMM (0.8-4.8); LYMPHOCYTES % (AUTO) 17.3 % (20.0-44.0); MEAN CORPUSCULAR HEMOGLOBIN 33 PG (26.0-33.0); MEAN CORPUSCULAR HGB CONC 34 g/dl (31.0-36.0); MEAN CORPUSCULAR VOLUME 97 fL (82-100); MONOCYTES # (AUTO) 0.6 /CMM (0.1-1.30); MONOCYTES % (AUTO) 7.6 % (2.0-12.0); NEUTROPHILS # (AUTO) 5.8 /CMM (1.8-8.9); NEUTROPHILS % (AUTO) 72.2 % (43.0-81.0); PLATELET COUNT (AUTO) 158 /CMM (150-450); RDW COEFFICIENT OF VARIATION 15.4 (11.5-15.0); RED BLOOD CELL COUNT(AUTO) 3.04 MIL/uL (4.0-5.2); WHITE BLOOD COUNT (AUTO) 8.1 K/uL (4.3-11.0)
--- NOTE | 2017-01-15 07:00 | NUR ---
received pt in bed. no c/o pain,no s/s of distress.breathing even and unlabored on room air.on tele monitoring.i.v site cdi and patent.safety measures in place,bed in low and locked position.call light within reach.will continue to monitor for changes.
[2017-01-15] MEDS ORDERED: THYROID 30 MG TABLET PO SCH (07:30)
[2017-01-15 07:43] LABS: ALBUMIN 2.7 g/dL (3.4-5.0); BILIRUBIN,TOTAL 0.2 mg/dL (0.2-1.0); CALCIUM, SERUM 8.8 mg/dL (8.5-10.1); CREATININE 1.5 mg/dL (0.6-1.3); POTASSIUM 4.1 mmol/L (3.5-5.1); TOTAL PROTEIN, SERUM 5.7 g/dL (6.4-8.2)
[2017-01-15 08:00] VITALS: BP 123/65
[2017-01-15] MEDS: BLOOD SUGAR DIAGNOSTIC 1 EACH STRIP IN SCH ×2 (08:23→11:11)
[2017-01-15] MEDS: DOCUSATE SODIUM 100 MG CAPSULE PO SCH (08:24)
[2017-01-15] MEDS: CLOPIDOGREL BISULFATE 75 MG TABLET PO SCH (08:24)
[2017-01-15] MEDS: BUMETANIDE (1 MG) 1 MG TABLET PO SCH (08:24)
[2017-01-15] MEDS: ALLOPURINOL 100 MG TABLET PO SCH (08:30)
[2017-01-15] MEDS: APIXABAN 2.5 MG TABLET PO SCH (08:30)
[2017-01-15] MEDS: hydrALAZINE HCL 50 MG TABLET PO SCH (11:10)
[2017-01-15 12:00] VITALS: BP 137/71
--- NOTE | 2017-01-15 17:00 | NUR ---
pt d/c home in stable condition.all belongings and d/c instructions provided to pt. i.v removed.all m.d orders noted and carried out.
[2017-01-16 08:18] LABS: ALDOSTERONE 2.4 ng/dL (0.0-30.0)
== END 2017-01-15 16:10 | disposition home or self-care (01) | DRG 308 ==
LOC: ER 16:12 → ICU 17:53 → TELE1 01-11 10:30
PROVIDERS: ADMIT Nurse Practitioner Acute Care; ATTEND Nurse Practitioner Acute Care
DX: I48.0 Paroxysmal atrial fibrillation (principal); N17.0 Acute kidney failure with tubular necrosis; N39.0 Urinary tract infection, site not specified; E87.1 Hypo-osmolality and hyponatremia; C34.92 Malignant neoplasm of unspecified part of left bronchus or lung; E87.5 Hyperkalemia; I12.9 Hypertensive chronic kidney disease with stage 1 through stage 4 chronic kidney disease, or unspecified chronic kidney disease; N18.9 Chronic kidney disease, unspecified; D63.8 Anemia in other chronic diseases classified elsewhere; I48.92 Unspecified atrial flutter; I49.5 Sick sinus syndrome; I25.10 Atherosclerotic heart disease of native coronary artery without angina pectoris; E03.9 Hypothyroidism, unspecified; Z85.118 Personal history of other malignant neoplasm of bronchus and lung; Z95.5 Presence of coronary angioplasty implant and graft; E10.65 Type 1 diabetes mellitus with hyperglycemia; K59.00 Constipation, unspecified; E86.1 Hypovolemia; I27.2 Other secondary pulmonary hypertension; Z79.4 Long term (current) use of insulin
CPT/HCPCS: 36415; 71010-TC; 80048-TC; 80053-TC; 80061-TC; 80076-TC; 81000-TC; 82088; 82306; 82728-TC; 82962-TC; 83540-TC; 83735-TC; 84100-TC; 84244; 84439-TC; 84443-TC; 84484-TC; 85025-TC; 85730-TC; 86850-TC; 87081-TC; 87086-TC; 93307-TC; A4606; A6402; J0360; J1815; J2405; J3475; J3490; J7030; J7040; Q0162; Z7610